=== PATIENT | male | born 1935 | race Caucasian/White ===

== ENCOUNTER 2020-05-06 17:34 | Inpatient (IN) | payer OTHER, MEDICARE ==
[~2020-05-06] VITALS: Ht 180.3 cm; Wt 77.1 kg
[~2020-05-06 17:34] MED LIST: ASPI325 PO; ENOX40I SC; LORA.5 PO; Multivitamin1 EAC1 PO; OXYC5 PO; coq-10 PO
[2020-05-06 18:06] LABS: BASOPHILS ABSOLUTE AUTO 0.03 K/mm3 (0.00-0.23); BASOPHILS PERCENT AUTO 0 % (0-2); EOSINOPHILS PERCENT AUTO 0 % (0-6); Hematocrit 49.2 % (37.0-53.0); Hemoglobin 16.9 g/dL (13.5-17.5); IMMATURE GRAN ABSOLUTE AUTO 0.03 K/mm3 (0.00-0.10); IMMATURE GRAN PERCENT AUTO 0 % (0-1); LYMPHOCYTES ABSOLUTE AUTO 0.92 K/mm3 (0.84-5.20); LYMPHOCYTES PERCENT AUTO 13 % (21-46); MONOCYTES ABSOLUTE AUTO 0.44 K/mm3 (0.16-1.47); MONOCYTES PERCENT AUTO 6 % (4-13); Mean Corpuscular HGB 33.6 pg (26.0-34.0); Mean Corpuscular HGB Conc 34.3 g/dL (31.5-36.5); Mean Corpuscular Volume 98 fL (80-100); Mean Platelet Volume 9.1 fL (9.1-12.4); NEUTROPHILS ABSOLUTE AUTO 5.89 K/mm3 (1.96-9.15); NEUTROPHILS PERCENT AUTO 81 % (41-73); Platelet Count 143 K/mm3 (150-400); RDW Coefficient Variation 12.4 % (11.7-14.2); RDW Standard Deviation 44.9 fL (35.1-46.3); Red Blood Cell Count 5.03 M/mm3 (4.30-5.90); White Blood Cell Count 7.31 K/mm3 (4.00-11.30)
[2020-05-06 18:21] LABS: International Normalized Ratio 1.02; Prothrombin Time Results 10.9 Sec (9.7-11.5)
[2020-05-06 18:30] LABS: Alanine Aminotransfer (ALT/SGP 24 U/L (12-78); Albumin/Globulin Ratio 1.1 (0.8-1.8); Alk Phos 82 U/L (50-136); Anion Gap 9 mmol/L (6-16); Aspartate Aminotrans (AST/SGOT 33 U/L (12-37); Bilirubin, Total 2.6 mg/dL (0.1-1.0); Blood Urea Nitrogen 16 mg/dL (8-24); Bun/Creatinine Ratio 18.9 (12.0-20.0); CO2, Blood 21 mmol/L (21-32); Calcium, Blood 9.2 mg/dL (8.5-10.1); Chloride, Blood 104 mmol/L (98-108); Creatinine, Blood 0.85 mg/dL (0.60-1.20); Globulin, Blood 3.6 g/dL (2.2-4.0); Glomerular Filtration Rate >60 (60-); Glucose, Blood 116 mg/dL (70-99); Potassium, Blood 4.5 mmol/L (3.5-5.5); Sodium, Blood 134 mmol/L (136-145); Total Protein, Blood 7.6 g/dL (6.4-8.2)
[2020-05-06 18:39] LABS: Appearance, Urine Hazy (Clear); Bilirubin, Urine Neg (Neg); Blood, Urine 5+ (Neg); Color, Urine Yellow (P-Yellow); Glucose Qualitative, Urine Neg (Neg); Ketones, Urine 4+ (Neg); Leukocyte Esterase, Urine 1+ (Neg); Nitrite, Urine Neg (Neg); Protein, Urine 3+ (Neg); Source, Urine Catheter; Urobilinogen, Urine NORM (Normal)
[2020-05-06 18:55] LABS: Red Blood Cells, Urine 25-50 /hpf (0-2)
[2020-05-06 18:56] LABS: Bacteria Few /hpf; Squamous Epithelial Cells Few /hpf (Few)
[2020-05-06 18:57] LABS: Renal Epithelial Few /hpf (0-Rare)
[2020-05-06] MEDS ORDERED: HYDHCL25 PO (19:55)
[2020-05-06] MEDS ORDERED: ESCI10 PO (19:55)
--- NOTE | 2020-05-07 04:19 | NUR ---
SHIFT SUMMARY RECIEVED REPORT FROM GEOVANNY VICTOR, ED @ 2127. ARRIVED TO MEDICAL FLOOR VIA STRETCHER @ 2142; ASSISTANCE REQUIRED WITH TRANSFER TO BED FROM [facility]. ALERT. FOLLOWING SOME COMMANDS. VERY [place] OWINGEH. FORGETFUL. IMPULSIVE. PULLING ON COLINDRES CATHETER; CAUSING SOME TRAUMA TO THE AREA. ATTEMPTING TO EXIT THE BED A FEW TIMES. DOES NOT UTILIZE CALL SYSTEM. ALL ADMISSION INFORMATION RETREIVED FROM DAUGHTER AND [facility] RECOR[facility]. HOSPITAL LIAISON STRENGTH TO L SIDE WEAK. L LEG ABLE TO RAISE. PUPILS EQUAL ROUND REACTIVE. VSS/AFEBRILE. NO ACUTE CHANGES NOTED. BED REMAINS IN LOWEST POSITION; ALARM ON. CALL LIGHT WITHIN REACH. CONTINUE WITH CURRENT PLAN OF CARE. REPORT TO ONCIMANI RN.
[2020-05-07 04:38] LABS: BASOPHILS ABSOLUTE AUTO 0.03 K/mm3 (0.00-0.23); BASOPHILS PERCENT AUTO 0 % (0-2); EOSINOPHILS PERCENT AUTO 0 % (0-6); Hematocrit 47.9 % (37.0-53.0); Hemoglobin 16.5 g/dL (13.5-17.5); IMMATURE GRAN ABSOLUTE AUTO 0.04 K/mm3 (0.00-0.10); IMMATURE GRAN PERCENT AUTO 0 % (0-1); LYMPHOCYTES PERCENT AUTO 14 % (21-46); MONOCYTES ABSOLUTE AUTO 0.78 K/mm3 (0.16-1.47); MONOCYTES PERCENT AUTO 8 % (4-13); Mean Corpuscular HGB 33.6 pg (26.0-34.0); Mean Corpuscular HGB Conc 34.4 g/dL (31.5-36.5); Mean Corpuscular Volume 98 fL (80-100); Mean Platelet Volume 8.6 fL (9.1-12.4); NEUTROPHILS ABSOLUTE AUTO 7.48 K/mm3 (1.96-9.15); NEUTROPHILS PERCENT AUTO 77 % (41-73); Platelet Count 134 K/mm3 (150-400); RDW Coefficient Variation 12.5 % (11.7-14.2); RDW Standard Deviation 45.1 fL (35.1-46.3); Red Blood Cell Count 4.91 M/mm3 (4.30-5.90); White Blood Cell Count 9.73 K/mm3 (4.00-11.30)
[2020-05-07 04:51] LABS: Alanine Aminotransfer (ALT/SGP 20 U/L (12-78); Albumin, Blood 3.7 g/dL (3.4-5.0); Albumin/Globulin Ratio 1.1 (0.8-1.8); Alk Phos 73 U/L (50-136); Anion Gap 10 mmol/L (6-16); Aspartate Aminotrans (AST/SGOT 29 U/L (12-37); Bilirubin, Total 2.9 mg/dL (0.1-1.0); Blood Urea Nitrogen 16 mg/dL (8-24); Bun/Creatinine Ratio 19.7 (12.0-20.0); CO2, Blood 22 mmol/L (21-32); Calcium, Blood 8.9 mg/dL (8.5-10.1); Chloride, Blood 105 mmol/L (98-108); Creatinine, Blood 0.81 mg/dL (0.60-1.20); Globulin, Blood 3.5 g/dL (2.2-4.0); Glomerular Filtration Rate >60 (60-); Glucose, Blood 114 mg/dL (70-99); Potassium, Blood 3.7 mmol/L (3.5-5.5); Sodium, Blood 137 mmol/L (136-145); Total Protein, Blood 7.2 g/dL (6.4-8.2)
--- NOTE | 2020-05-07 17:32 | NUR ---
PATIENT RECIEVED IONTO ROOM 346. DAUGHTER JOSE ALEJANDRO HERE WITH PATIENT AT BEDSIDE.
--- NOTE | 2020-05-07 17:57 | NUR ---
PT HAS CONTINUED TO BE CONFUSED AND IMPULSIVE AOX1. PT IS VERY LIMITED ON WHAT HE CAN SAY AND IT DOESN'T MAKE MUCH SENSE AND IS VERY GARBLED. PT HAS TRIED TO GET OUT OF BED THROUGHOUT THE DAY AND HAS NEEDED A LOT OF SUPERVISION AND BED ALARM ON AT ALL TIMES. DECISION WAS MADE TO MOVE PT TO ROOM 346 TO HAVE MORE EYES ON HIM FOR HIS SAFETY. REPORT WAS GIVEN TO RECIEVING KAYLEIGH LAWRENCE. PT HAS BEEN AFEBRILE ALL DAY. NO DISTRESS HAS BEEN NOTED.
--- NOTE | 2020-05-07 22:19 | NUR ---
IMPULSIVE/FORGETFUL FORGETFUL OF SITUATION, KEEPS PUTTING LEGS OVER BED RAILS & TRYING TO GET OOB W/O ASSISTANCE. WHEN ASKED WHAT HE IS DOING PT STATES "GOING FOR A WALK" OR "GETTING A DRINK OF WATER". PT VERY WEAK ONLY HAS MINIMAL GROSS MOVEMENT c L SIDE EXTREMITIES. IS PLEASENT & COOPERATIVE, JUST HIGH FALL RISK & CONFUSED. NORMALLY TAKES ATARAX PO FOR ANXIETY, HOWEVER IS NPO FO SPEECH EVAL TOMORROW. INFORMED ROBERT W & SHE ORDERED OT DOSE 25MG BENEDRYL IV FOR SLEEP. GAVE MED & WILL MONITOR.
--- NOTE | 2020-05-08 04:45 | NUR ---
SHIFT SUMMARY AOXSELF, STATES NAME. HAS SLURRED, GARBLED SPEECH WHICH IS HARD TO UNDERSTAND. [place]. CAN FOLLOW SOME SIMPLE DIRECTIONS, STUCK OUT TONGUE & MOVED BILAT FEET AFTER ASKING A FEW TIMES. IS FORGETFUL & IMPULSIVE, HAS TRIED TO GET OOB W/O HELP, READ PREVIOUS NOTE. STATES HE WANTS TO GO FOR A WALK, NEEDS TO PEE, OR WANTS TO GET A DRINK OF WATER. FORGETS HIS CURRENT SITUATION & WHERE HE'S AT, NEEDS REORIENTING & REMINDING. PLEASENT & COOPERATIVE. HAD 102 TEMP ON DAY SHIFT, PT WAS GIVEN TYLENOL SUPPOSITORY & LAST TEMP TAKEN WAS 99.0. DENIES PAIN, SHAKES HEAD NO WHEN ASKED, STATES "I ONLY HAVE PAIN WHEN I COUGH SOMETIMES." HAS OCCASIONAL CONGESTED MOIST COUGH, USING SUCTION I WAS ABLE TO GET SMALL AMOUNT THICK YELLOW/GREEN SPUTUM. LUNGS SOUND COARSE. SPO2 >90% ON RA. DENIES N/V, STATES "I HAVEN'T EATEN IN AWHILE." CURRENTLY NPO FOR ASPIRATION RISK, HAVING SPEECH EVAL TODAY. COLINDRES PATENT & DRAINING CLOUDY RED/ORANGE URINE c SM CLOTS, PER REPORT PT HAD BEEN PULLING ON COLINDRES PREVIOUS SHIFT & MAY HAVE CAUSED TRAUMA. L HAND BRIQUETTE MAKER WEAKER THEN R HAND, ABLE TO MOVE FINGERS ON L HAND SLIGHTLY & HAS GROSS MOVEMENT c LLE. CALL LIGHT IN REACH, BED ALARM IN PLACE & PT ON CAMERA FOR SAFETY.
--- NOTE | 2020-05-08 16:14 | NUR ---
SHIFT SUMMARY PT HAD AN IMPROVEMENT IN LOC THIS SHIFT. THIS AM THE PATIENT WAS A/O X1 WITH VERY GARBLED SPEECH AND WAS NOT FOLLOWING COMMANDS. THE DAUGHTER CAME IN THIS AFTERNOON AND DURING THE VISIT THE PT BECAME MORE ORIENTED AND HIS SPEECH IMPROVED A BIT. HE WAS ABLE TO TELL THIS RN HIS BIRTHDAY, WHERE HE WAS BORN, AND DESCRIBED ACTIVITIES HE DID AT HOME. PT STILL NPO PER SPEECH THERAPY. TPN STARTED. PALLIATIVE CARE MET WITH PT AND SHELLY. PT RUNNING A FEVER THIS AFTERNOON AND MEDICATED WITH TYLENOL PER EMR.
--- NOTE | 2020-05-08 17:39 | NUR ---
Met with pt and daughter Marisa today for a lengthy visit. This RN saw pt earlier today for a brief interview, but he was unable to speak any intelligible words, and he fell asleep while this RN was speaking to him. Returned to visit with pt's daughter regarding pt's status, and during the visit, the pt began to verbally respond appropriately to most questions, and was able to tell me his date of , and where he was born. I verified the information and it was correct. I then asked him to touch my hand, raising it above him. He was able to follow this command with his right hand, and he attempted with his left, but only able to life left arm about prison up. He then was able to squeeze my fingers, right bone glue maker stronger than the left, but he again was able to follow commands. He told me about his son and his son's dog, including listing all the things he feeds the dogs, including "tomatoes and cucumbers". I was able to understand him very well. His RN for the shift confirmed. Pt's daughter states her shock as well. Plan: Follow up with ST for re-eval tomorrow if she is able.
--- NOTE | 2020-05-08 19:06 | NUR ---
PATIENT AGITATION PT BECAME MORE AGITATED AND CONFUSED. TRIES CONTINUOUSLY TO GET OUT OF BED AND TO PULL OUT HIS COLINDRES CATHETER. CHRIS VEST RESTRAINTS ORDERED AND PLACED ON PATIENT. PT CURRENTLY RESTING COMFORTABLY IN BED WITH CALL LIGHT IN REACH.
--- NOTE | 2020-05-08 22:49 | NUR ---
IMPULSIVE/RESTLESS PT SWINGING LEGS OFF SIDE OF BED, STATES HE'S TRING TO GET UP BECAUSE HE HAS LOTS OF STUFF TO DO. CONFUSED. IMPULSIVE. RESTLESS. TRIED REORIENTING MULTIPLE TIMES TO SITUATION & TELLING PT HE'S IN HOSPITAL, PT STATES HE'S AT HOME. UNABLE TO REDIRECT OR REORIENT TONIGHT & PT CONSTANTLY TRYING TO GET OOB EVEN c CHRIS VEST IN PLACE. INFORMED ROBERT W & SHE ORDERED 50MG IV BENADRYL. GAVE MED & I WILL MONITOR PT.
--- NOTE | 2020-05-09 05:11 | NUR ---
SHIFT SUMMARY AOXSELF, ABLE TO STATE NAME & . FOLLOWS SIMPLE DIRECTIONS. L SEALER AIRCRAFT WEAKER THEN R HAND SEALER AIRCRAFT. LLE GROSS MOVEMENT. GARBLED, SLURRED SPEECH c PERIODS OF CLEAR SPEECH, VERY TALKATIVE TONIGHT. FOUND IN RM TALKING TO SELF FREQUENTLY. INUPIAT. FORGETFUL & IMPULSIVE, FORGETS HE IS IN HOSPITAL & TRYS TO GET OOB TO "DRIVE THE CAR IN THE [place]" OR "GET THINGS DONE". DIFFICULT TO REORIENT @TIMES, READ PREVIOUS NOTE. NO S/S PAIN, N/V OR DYSPNEA. HAS COARSE BREATH SOUNDS c MOIST NONPRODUCTIVE COUGH, SUCTION USED, SPO2 >90% ON RA. VSS. COLINDRES PATENT & DRAINING RED/ORANGE URINE. RECIEVING CLINIMIX @90/HR. Q6 CBG HAVE BEEN WNL. BED ALARM, CHRIS VEST & CAMERA IN PLACE FOR SAFETY. WILL MONITOR.
[2020-05-09 05:12] LABS: BASOPHILS ABSOLUTE AUTO 0.04 K/mm3 (0.00-0.23); BASOPHILS PERCENT AUTO 1 % (0-2); EOSINOPHILS ABSOLUTE AUTO 0.01 K/mm3 (0.00-0.68); EOSINOPHILS PERCENT AUTO 0 % (0-6); Hematocrit 42.5 % (37.0-53.0); IMMATURE GRAN ABSOLUTE AUTO 0.02 K/mm3 (0.00-0.10); IMMATURE GRAN PERCENT AUTO 0 % (0-1); LYMPHOCYTES ABSOLUTE AUTO 1.33 K/mm3 (0.84-5.20); LYMPHOCYTES PERCENT AUTO 20 % (21-46); MONOCYTES ABSOLUTE AUTO 0.57 K/mm3 (0.16-1.47); MONOCYTES PERCENT AUTO 9 % (4-13); Mean Corpuscular HGB 33.6 pg (26.0-34.0); Mean Corpuscular HGB Conc 35.3 g/dL (31.5-36.5); Mean Corpuscular Volume 95 fL (80-100); Mean Platelet Volume 8.9 fL (9.1-12.4); NEUTROPHILS PERCENT AUTO 71 % (41-73); Platelet Count 117 K/mm3 (150-400); RDW Coefficient Variation 11.9 % (11.7-14.2); RDW Standard Deviation 42.2 fL (35.1-46.3); Red Blood Cell Count 4.46 M/mm3 (4.30-5.90); White Blood Cell Count 6.67 K/mm3 (4.00-11.30)
[2020-05-09 05:28] LABS: Albumin, Blood 3.1 g/dL (3.4-5.0); Anion Gap 9 mmol/L (6-16); Blood Urea Nitrogen 23 mg/dL (8-24); Bun/Creatinine Ratio 33.9 (12.0-20.0); CO2, Blood 23 mmol/L (21-32); Calcium, Blood 8.1 mg/dL (8.5-10.1); Chloride, Blood 104 mmol/L (98-108); Creatinine, Blood 0.68 mg/dL (0.60-1.20); Glomerular Filtration Rate >60 (60-); Glucose, Blood 119 mg/dL (70-99); Magnesium, Blood 2.2 mg/dL (1.6-2.4); Phosphorus, Blood 3.4 mg/dL (2.5-4.9); Potassium, Blood 3.5 mmol/L (3.5-5.5); Sodium, Blood 136 mmol/L (136-145)
--- NOTE | 2020-05-09 12:38 | NUR ---
Met with ST this morning at patient's room afer she performed another swallow eval on this gentleman today. He is still speaking more clearly, and is wearing his dentures today, but remains unable to follow commands to swallow food, and held applesauce in his mouth; did not appear to know what to do with it. At this time, pt is exhibiting s/s of anxiety. He is curently sitting up in a reclining chair with a deni in place, and attempting to pull himself forward onto the floor. He is repeating, "I need to get home" and seems to fixate on this. The charge nurse, floor nurse, and television cable installer for the patient are all attempting to redirect pt and keep him from hurting himself, as he doesn't appear to remember he cannot walk. Placed call to pt's daughter Marisa who is available to come now, and ST in agreement that she may be therapeutic for the patient. Also requested Dr. Harmon order prn lorazepam as pt used this for bedtime for several years, and it was effective at that time, per daughter.
--- NOTE | 2020-05-09 14:43 | NUR ---
PT/OT ORDERS RECEIVED V.O. FROM DR. MARR FOR PT/OT EVAL. ORDER UPDATED.
--- NOTE | 2020-05-09 14:43 | NUR ---
DC NS @ [address] MARR TO D/C SALINE. CLINIMIX INFUSING @ 90 MLS/HR
--- NOTE | 2020-05-09 17:26 | NUR ---
Shift Summary AO to self. Patient was impulsive, agitated, difficult to redirect this morning. Climbing out of bed even with vest restraints on. Staff decided to place patient in chair out in the hallway, but patient was adamant about leaving and saying "take me to the car." Speech is slurred and garbled, daughter states speech is at baseline. Some words are clear and some incomprehensible. [place], hearing aids are on. Clinimix infusing at 90 mLs/hr. Blood glucoses have been stable. 2 moderate assist with gait belt. Patient has been calmer this afternoon. Restraints d/c'd. Marisa (daughter) has been at the bedside and states patient does not wish to receive artificial nutrition through feeding tubes. She claims documents expressing such has been [facility] by the [facility], but there is no documents yet. Will fax request to DC for these documents. PT/OT was not able to eval d/t patient sleeping. ROYAL.
--- NOTE | 2020-05-09 18:05 | NUR ---
FALL PATIENT HAD A FALL BRIEFLY AFTER RESTRAINTS WERE REMOVED. NO APPARENT INJURY. NOTIFIED DR. MARR AND L/M ON JOSE ALEJANDRO'S (DAUGHTER) PHONE. PATIENT BACK IN BED WITH RESTRAINTS ON. CHARGE NURSE NUHA AND NURSING SERVICE ORDER CLERK NOTIFIED.
--- NOTE | 2020-05-10 04:12 | NUR ---
SHIFT SUMMARY ASSUMED CARE OF PT AT 190. PT IS A/O TO NONE. HEART SONDS RGULAR, LUNG SOUNDS COARSE. RT WAS CONSULTED WITH CARE BECASE PT HAD A DEEP GARGLE IN HIS THROAT. HOSPITALIST ORDERED NT SUCTION PER RT. RT WAS ABLE TO SUCTION A SMALL AMOUNT OF THICK WHITE MUCUS, PT GARGLE STOPPPED FOR A COUPLE HOURS AND THEN STARTED AGAIN. COLINDRES DRAINING SURENDRA URINE. PT ATTEMPTED TO GET OUT OF BED MULTIPLE TIMES DURING THE NIGHT. HOSPITALIST NOTIFIED AND ORDERED ZYPREXA. PT STILL ATTEMPTED TO GET OUT OF BED BUT NOT OFTEN AFTER TREATMENT. CALL LIGHT IN REACH, BED IN LOWEST POSITION.
[2020-05-10 05:18] LABS: Magnesium, Blood 2.3 mg/dL (1.6-2.4)
[2020-05-10 05:19] LABS: Phosphorus, Blood 4.3 mg/dL (2.5-4.9)
--- NOTE | 2020-05-10 11:27 | NUR ---
BLOOD GLUCOSE CHECKS PATIENT'S BLOOD SUGARS HAVE BEEN STABLE @ 120 AND UNDER. RECEIVED V.O. FROM DR. TEJINDER CASTLE TO D/C Q6 BLOOD SUGAR CHECKS.
--- NOTE | 2020-05-10 11:30 | NUR ---
DAILY WEIGHT AND COLINDRES RECEIVED V.O. FROM DR. MARR TO D/C DAILY WEIGHT AND COLINDRES CATHETER. ORDERS UPDATED.
[2020-05-10 11:43] LABS: Influenza A, PCR NEGATIVE (NEGATIVE); Influenza B, PCR NEGATIVE (NEGATIVE); Resp Syncytial Virus, PCR NEGATIVE (NEGATIVE); SARS-Cov-2 (COVID-19) PCR, MMC NEGATIVE (NEGATIVE)
--- NOTE | 2020-05-10 17:58 | NUR ---
RESTRAINTS PATIENT REMAINS CONFUSED AND SWINGING LEGS OUT OF BED. INCOHERENT AND UNABLE TO REDIRECT. ALSO SUSTAINED A FALL YESTERDAY. RECEIVED T.O. FROM DR. MARR TO RENEW VEST RESTRAINTS. ORDER PLACED.
--- NOTE | 2020-05-10 18:27 | NUR ---
Review of plan of care with home health care physician. Will follow up with daughter tomorrow for supportive visit and assesment of her goals for her father.
--- NOTE | 2020-05-10 19:48 | NUR ---
Shift Summary A/O to self and family. Vest restraints remain in place. The copy of advanced directive [facility] the [facility] in chart does not state any specifics of patient's wishes. RT called several times for deep suctioning. Patient having lots of secretions requiring this RN to suction at bedside as well. Marisa was in to see patient and very tearful RE patient's decline and inability to swallow. Marisa states considering taking patient home before the weekend on Hospice. Decision to be made after family discussion fela. Betty Palliative RN aware. Clinimix @ 90 with lipids infusing. Patient was not appropriate for PT/OT eval today. Report given to oncoming RN.
[2020-05-11 05:21] LABS: Magnesium, Blood 2.3 mg/dL (1.6-2.4); Phosphorus, Blood 4.4 mg/dL (2.5-4.9)
--- NOTE | 2020-05-11 06:15 | NUR ---
SHIFT SUMMARY ALERT TO SELF. COOPERATIVE WITH CARE EXCEPT FOR WHEN IT COMES TO SUCTIONING. DOES NOT LIKE THAT AT ALL. NO C/O PAIN/DISCOMFORT OF S/SX. APPEARED TO REST SOME THE NIGHT. CONTINUES TO HAVE WET PRODUCTIVE COUGH AT TIMES, BUT REFUSES TO SPIT OUT PHLEGM. BS COARSE. SPO2 >90% ON RA, RESPIRATIONS EVEN WITH EQUAL RISE/FALL. NEW IV PLACED AND CONT TO INFUSE CLINIMIX AND LIPIDS. REPOSITIONED TOLERATED. BED REMAINS IN LOWEST POSITION; ALARM ON. CALL LIGHT WITHIN REACH, DOES NOT UTILIZE. CONTINUE WITH CURRENT PLAN OF CARE. REPORT TO ONCOMING RN.
--- NOTE | 2020-05-11 11:43 | NUR ---
Attempted to see pt today. According to OPERATIONS LEADER, pt has been sleeping for about an hour this morning. He is sitting in the upright position, slightly slumped. Per OPERATIONS LEADER, prior to this he was restless, and attempting to climb out of bed and not redirecting well. However, he is sleeping very well at this time, and barely seems to notice when we repositioneded him in the bed and lowered HOB. He appears more comfortable. No symptom managemen issues at this time. Pt remains NPO, but receiving fluids and nutrition via IV for now. No final decision has been made regarding placement at this time.
[2020-05-11 18:14] LABS: Source, Urine Clean Catch
--- NOTE | 2020-05-11 18:38 | NUR ---
SHIFT SUMMARY TYRA WAS OUT OF RESTRAINTS THIS SHIFT. ORIENTED TO SELF, FAMILY, AND SOMEWHAT TO SITUATION. STATES HE HAS PAINFUL URINATION, UA SENT OFF PER DR MARR. URINATED IN URINAL WITH DAUGHTER. VERY [place]. WORKED WITH PT AND OT, GOT UP TO CHAIR WITH AO2 AND GAIT BELT. CLINIMIX AND LIPIDS RUNNING. INCONT/CONTINENT. ADULT CROSSING GUARD CAME AND SAW HIM, NOT SAFE FOR PO INTAKE. RT NT SUCTIONED HIM TWICE THIS SHIFT. CONTINUES TO BE OUT OF RESTRAINTS, BUT SETS OFF BED ALARM FREQUENTLY WHEN IN CHAIR. IN BED, HE TENDS TO FALL ASLEEP AND REST MORE COMFORTABLY. VERY IMPULSIVE. CALL LIGHT IN REACH, FREQUENT CHECKS, WCTM
[2020-05-11 18:54] LABS: Appearance, Urine Clear (Clear); Bilirubin, Urine Neg (Neg); Blood, Urine 5+ (Neg); Color, Urine Yellow (P-Yellow); Glucose Qualitative, Urine Neg (Neg); Ketones, Urine Neg (Neg); Leukocyte Esterase, Urine 2+ (Neg); Nitrite, Urine Neg (Neg); Protein, Urine 2+ (Neg); Urobilinogen, Urine NORM (Normal)
[2020-05-11 19:15] LABS: Bacteria Mod /hpf; Squamous Epithelial Cells Mod /hpf (Few)
[2020-05-11 19:16] LABS: Amorphous Light (0-Heavy); Mucus Heavy (0-Heavy)
[2020-05-12 04:59] LABS: Hematocrit 45.4 % (37.0-53.0); Hemoglobin 15.6 g/dL (13.5-17.5); Mean Corpuscular HGB 33.5 pg (26.0-34.0); Mean Corpuscular HGB Conc 34.4 g/dL (31.5-36.5); Mean Corpuscular Volume 98 fL (80-100); Mean Platelet Volume 9.6 fL (9.1-12.4); Platelet Count 130 K/mm3 (150-400); RDW Standard Deviation 43.5 fL (35.1-46.3); Red Blood Cell Count 4.65 M/mm3 (4.30-5.90)
[2020-05-12 05:20] LABS: Albumin, Blood 2.9 g/dL (3.4-5.0); Anion Gap 7 mmol/L (6-16); Blood Urea Nitrogen 27 mg/dL (8-24); Bun/Creatinine Ratio 38.5 (12.0-20.0); CO2, Blood 26 mmol/L (21-32); Calcium, Blood 8.5 mg/dL (8.5-10.1); Chloride, Blood 101 mmol/L (98-108); Glomerular Filtration Rate >60 (60-); Glucose, Blood 111 mg/dL (70-99); Phosphorus, Blood 4.4 mg/dL (2.5-4.9); Potassium, Blood 4.4 mmol/L (3.5-5.5); Sodium, Blood 134 mmol/L (136-145)
--- NOTE | 2020-05-12 05:48 | NUR ---
SHIFT SUMMARY PT IS A&O TO SELF, EXTREMELY RED CLIFF, CONFUSED & ATTEMPTED TO GET OUT OF BED T/O THE NIGHT (DID NOT SLEEP), C/O HAVING TO VOID EVERY 5 MINUTES- ASSISTED W/URINAL & INCONT T/O THE NIGHT (CURRENT BLADDER SCAN= 160MLS), PT STILL ATTEMPTING TO GET OUT OF BED STATING "I NEED TO PEE", BED ALARM ACTIVE, SWITCHBOARD INSPECTOR WATCHING FROM OUTSIDE THE ROOM T/O THE NIGHT, NO OTHER COMPLAINTS, VSS, WILL CONT TO MONITOR UNTIL REPORT GIVEN TO DAY RN.
--- NOTE | 2020-05-12 18:38 | NUR ---
SHIFT SUMMARY TYRA'S DAUGHTER VISITED TODAY. PT UP IN CHAIR FOR HALF HOUR, WALKED TO BR WITH AO2 AND GAIT BELT DUE TO IMPULSIVITY. VERY [place], BUT READS LIPS WELL. ORIENTED TO SELF AND ABLE TO FOLLOW DIRECTIONS BUT VERY DISTRACABLE AND IMPULSIVE. FAILED SWALLOW EVAL AGAIN THIS SHIFT. INCONT/CONTINENT. STILL ENDORSES DYSURIA. STRICT NPO. CLINIMIX AND LIPIDS RUNNING. RESTLESS IN BED, OCCASIONALLY THROWS LEGS OVER SIDE BUT DIDN'T ATTEMPT TO GET OOB THIS SHIFT. ON CONTINUOUS VIDEO MONITORING. NO SUCTIONING REQUIRED THIS SHIFT. FREQUENT CHECKS, CALL LIGHT IN REACH, [facility]
--- NOTE | 2020-05-13 09:24 | NUR ---
THE NURSE AND I TRIED GETTING PT OUT OF BED AND INTO CHAIR. PT REFUSED TO STAND AND TRIED LAYING BACK DOWN. WE PUT HIM BACK TO BED BUT HE STILL TRIED TO CLIMB OUT OF BED.
--- NOTE | 2020-05-13 14:56 | NUR ---
PT MOVED TO CHAIR AND IS NOT TRYING TO GET UP.
--- NOTE | 2020-05-13 17:48 | NUR ---
FAMILY PRESENT, PO FLUIDS OFFERED, PT REPOSITIONED.
--- NOTE | 2020-05-13 19:17 | NUR ---
SHIFT SUMMARY PT PLACED ON COMFORT CARE THIS SHIFT. PT FAMILY CAME TO VISIT. DIET CHANGED TO PUREE. CHRIS VEST NEEDED DUE TO PT TRYING TO TRANSFER SELF. NO PRN MEDICATION GIVEN DURING SHIFT. PT CURENTLY IN BED, SHIFT REPORT GIVEN TO NIGHT NURSE.
--- NOTE | 2020-05-13 22:44 | NUR ---
AGITATION PT COMBATIVE, KICKING HIS LEGS AND SWINGING HIS LEGS. ATTEMPTED TO GIVE ATIVAN WITH PUDDING BUT PT CONTINUES TO SWING AND REFUSES TO TAKE. DR. KHALIL CALLED AND NOTIFIED OF PT AGITATION. RECEIVED ORDER FOR IV ATIVAN.
--- NOTE | 2020-05-14 05:12 | NUR ---
SHIFT SUMMARY PT HAS BEEN RESTLESS AND AGITATED OFF AND ON THIS SHIFT. PT STARTED SHIFT, PLESANTLY CONFUSED STILL ATTEPTING MAGALIE CLIMB OUT OF BED BUT WAS MOSTLY COOPERATIVE AND REDIRECTABLE. HOWEVER, THE NIGHT PROGRESSED PT BECAME MORE AGIATED AND COMBATIVE WITH STAFF. PT IS DIFFICULT TO DIRECT AND HAS A HARD TIME FOLLOWING DIRECTIONS. SPEECH IS GARBALED AND NONSENSICAL. PT SWINGS AT AND ATTEMPTS TO KICK STAFF WHEN ATTEMPING TO REPOSITION, OR WHEN CHANGING ATTENDS. PT INCONTINENT AND AT TIMES REMOVES ATTENDS SOILING THE BED. LINEN CHANGES HAVE BEEN REQURIED THIS SHIFT. CHRIS VEST REMAINS IN PLACE PT CONTINUES TO ACTIVELY CLIMB OUT OF BED. PT IS VERY WEAK AND UNSTEADY ON HIS FEET, AND REMAINS A HUSSEIN FALL RISK. PT DENIES PAIN. MEDICATED FOR ANXIETY THIS SHIFT. PT DOES HAE EXCESS SECREATIONS, YANKER SUCTION AT BEDSIDE AND USED PRN. COMFORT ASSESSED T/O SHIFT. BED IN LOWEST POSITION, CALL LIGHT WITHIN REACH, BED ALARM IN PLACE.
--- NOTE | 2020-05-14 10:07 | NUR ---
PT SLEEPING. AROUSES TO SOME STIMULATION BUT FALLS BACK ASLEEP QUICLY. DOES NOT FOLLOW INSTRUCTIONS AND IS NOT ORIENTED. ABSENT OF ANY PAIN SIGNALS. APNEIC DURING SLEEP AT TIMES. SCU CONFERENCE COORDINATOR CALLED AND NOTIFED THAT PATIENT RESTRAINTS HAVE BEEN DC'D. BED IN LOW POSITION, BED ALARM ON, CALL LIGHT WITHIN REACH
--- NOTE | 2020-05-14 12:50 | NUR ---
PAL CARE - Comfort care visit - Pt sound asleep in room. He appears comfortable. He did not wake when I entered room or to voice and I did not disturb him. Case conferenced with pt's RN re: medications for current and anticipated secretions due to aspiration and inability to swallow. No family visiting at present. Plan daily comfort care visits for support and s/s assessments.
--- NOTE | 2020-05-14 16:52 | NUR ---
SHIFT SUMMARY PT AXOX0 AROUSING TO TACTILE STIMULATION, BUT FALLS BACK TO SLEEP QUICKLY. ON COMFORT CARE. PT APPEARS ABSENT OF PAIN AND AGGITATION. REPOSITIONED AND ORAL CARE PER ORDERS. RESTRAINTS DC'D THIS MORNING. PT NOT ATTEMPTING OOB THIS SHIFT. BED IN LOW POSITION, CALL LIGHT WITHIN REACH. PT'S DAUGHTERS IN ROOM AT THIS TIME. ONE OF WHOM IS AN RN WHO EXPRESSED CONCERN ABOUT THE DOSAGE OF ATIVAN GIVEN LAST NIGHT. THIS NURSE LISTENED TO DAUGHTER VIA ACTIVE LISTENING AND THERAPEUTIC COMMUNICATION. THIS NURSE CALLED DR ARTEAGA TO REDUCE DOSAGE RANGE, SEE ORDERS. DAUGHTER UPDATED, NO PAIN OR AGGITATION MEDICATIONS GIVEN THIS SHIFT. PT APPEARS COMFORTABLE AT THIS TIME.
--- NOTE | 2020-05-14 19:30 | NUR ---
ASSUMPTION OF CARE REPORT TAKEN FROM DAY RN TO ASSUME CARE OF PT. PT DAUGHTER'S AND CHEMICAL MANAGER AT BEDSIDE PERFORMING CARE WHEN THIS RN CAME ON TO SHIFT. AFTER REPORT ALL QUESTIONS AND CONCERNS ADDRESSED WITH FAMILY REGARDING COMFORT CARE, AND COMFORT CARE MEDICATIONS ORDERED FOR ANXIETY/AGITATION. PT AMBULATED TO THE BATHROOM WITH HIS DAUGHTER'S. THEY REQUESTED TO HELP GET HIM TO THE BATHROOM THEMSELVES, I ASSISTED PRN. PT TOLERATED AMBULATION WELL AND HAD A SMALL BM. PT APPEARS IN GOOD SPIRITS WITH FAMILY AT BEDSIDE, AND HE ATE A GOOD PORTION OF HIS DINNER. PT IS MORE AWAKE AND ALERT, COOPERATIVE AND IS FOLLOWING DIRECTIONS. THE FAMILY FEELS BETTER THAT ALL ISSUES HAVE BEEN ADDRESSED REGARING PT MEDICATIONS, AND ARE FULLY INFORMED OF CURRENT PLAN OF CARE. PT'S FAMILY REQUEST SOMETHING TO HELP PT SLEEP TONIGHT AND WOULD LIKE MELATONIN ORDERED. PT DAUGHTER REQUESTS TO BE CALLED PRN FOR ANY BEHAVIOURAL DISTURBANCES WITH PT, AND STATES SHE WILL COME SIT [facility] PT IF NEEDED. NAME AND NUMBER IS ON THE BOARD. PT RESTING COMFORTABLY IN BED AT THIS TIME. BED IN LOWEST POSITION, CALL LIGHT WITHIN REACH. BED ALARM IN PLACE.
--- NOTE | 2020-05-15 05:03 | NUR ---
SHIFT SUMMARY PT IS MUCH MORE LUCID, AND HAS NOT HAD ANY BEHAVIOURAL ISSUES THIS SHIFT. PT HAS SLEPT COMFORTABLY MOST OF THE NIGHT IN BED. WHEN ASKED ABOUT PAIN PT DENIES. MINIMAL SECREATIONS, AND PT HAS NOT NEEDED YANKER SUCTION. PT ABLE TO VOICE SOME NEEDS. PT INDEPENDENTLY SHIFTS AND REPOSITIONS HIMSELF IN BED. PT ASKS TO USE THE URINAL A FEW TIMES THIS SHIFT, BUT WHEN ATTENDS ARE CHECKED PT HAS ALREADY GONE. PT HAS HAD A RESTFUL NIGHT, AND IS PLESANT AND COOPERATIVE WITH STAFF. COMFORT ASSESSED T/O SHIFT. BED IN LOWEST POSITION, CALL LIGHT WITHIN REACH.
--- NOTE | 2020-05-15 19:26 | NUR ---
Spiritual care note: No family present. Mr. Calvin appeared to be peacefully sleeping. Prayer and comfort through touch/presence. I will remain available to pt and family.
--- NOTE | 2020-05-15 19:47 | NUR ---
a and orintated to self and family, gets confused at times but never combatative, call light in reach, bed in low positon, family in to visit, medicated as prescribed, able to transfer to bsc with 2 person assist, no acute changes noted during shift
--- NOTE | 2020-05-16 03:32 | NUR ---
PHYSICIAN COMMUNICATION CONTACTED FENCE BUILDER PHYSICIAN, DR REINOSO, TO NOTIFY HER THAT THE PATIENT IS AGITATED. HE IS CONSTANTLY TRYING TO CRAWL OUT OF BED, EVEN WITH CHRIS ON, AND MANAGED TO SLIDE HIS FEET BETWEEN THE BED RAILS AND TO THE FLOOR. ALSO NOTIFIED DR REINOSO THAT THE PATIENT WAS ADMINISTERED 1 MG ATIVAN PO AT [address] REINOSO SAID TO ADMINISTER 1 MG ATIVAN IV TO HELP WITH AGITATION.
--- NOTE | 2020-05-16 06:34 | NUR ---
SHIFT SUMMARY PATIENT ALERT AND ORIENTED TO SELF ONLY. PATIENT SHOWED NO SIGNS OF BEING IN PAIN. WAS MEDICATED TWICE WITH PRN ATIVAN FOR AGITATION. AFTER ADMINISTRATION OF 1 MG ATIVAN IV AT 0322 PATIENT CONTINUED TO PULL OFF HIS BRIEFS FREQUENTLY AND TRY CRAWLING OUT OF BED. IT HAD MINIMAL EFFECT ON HIM. PANTS PLACED ON PATIENT TO DETER HIM FROM TAKING HIS BRIEFS OFF SO OFTEN. IV PATENT AND FLUSHED. BED IN LOWEST POSITION WITH WHEELS LOCKED AND ALARM ON. CALL LIGHT WITHIN REACH. REPORT GIVEN TO ONCOMING RN.
--- NOTE | 2020-05-16 14:11 | NUR ---
SHIFT SUMMARY PT AWAKE AND ALERT, BUT DOES NOT ANS QUESTIONS APPROPRIATELY OR FOLLOW ANY DIRECTIONS. PT CURRENTLY ON COMFORT CARE. PER REPORT, PT TO BE D/C'D TO HOME ON HOSPICE WHEN SET UP. PT HAS BEEN VERY BUSY AND RESTLESS. CONSTANTLY TRYING TO GET OOB. PT IS CONFUSED AND DISORIENTED. EATING ONLY BITES AT A TIME. PT/OT D/C'D, PT IS UNABLE TO PARTICIPATE OR FOLLOW ANY INSTRUCTIONS. PT IS INCONTINENT OF BOWEL AND BLADDER; ATTENDS CHANGED FREQUENTLY. BED ALARM ON FOR SAFETY. CALL LT IN REACH.
--- NOTE | 2020-05-16 17:39 | NUR ---
Met with pt today; he's been placed on comfort care measures and is continuing to decline as he is drinking and eating scant amounts by choice. Pt appears to be losing interest in food, and will occasionally take bites but not attempt to swallow them. Nursing continues with frequent mouth cleansing. Pt is calm at this visit today. Ray still used occasionally for safety.
--- NOTE | 2020-05-17 04:34 | NUR ---
INDUSTRIAL ENGINEERING PROFESSOR SUMMARY PT HAS SLEPT MOST OF THE NIGHT. COMFORT CARE MEASURES GIVEN. DENIES PAIN. ORAL CARE PROVIDED. PT ABLE TO REPOSITIONING SELF. INCONTINENT TO BOWEL. NO ACUTE CHANGES. CALL LIGHT WITHIN REACH, BED ALARM ON.
--- NOTE | 2020-05-17 09:48 | NUR ---
PATIENT CALM AND COOPERATIVE AT THIS TIME. CHRIS IN PLACE FOR SAFETY. ATTENDS CHANGED AND PATIENT REPOSITIONED.
[2020-05-17] MEDS ORDERED: MORP20L PO (11:08)
[2020-05-17] MEDS ORDERED: ONDA4ODT MM (11:08)
[2020-05-17] MEDS ORDERED: Ativan1 MG PO (11:08)
== END 2020-05-17 11:43 | disposition hospice, home (50) | DRG 64 ==
LOC: ER 17:34 → MEDS 20:20
PROVIDERS: Internal Medicine; Student in an Organized Health Care Education/Training Program; ADMIT Internal Medicine
DX: I63.511 Cerebral infarction due to unspecified occlusion or stenosis of right middle cerebral artery (principal); J69.0 Pneumonitis due to inhalation of food and vomit; G81.94 Hemiplegia, unspecified affecting left nondominant side; Z66 Do not resuscitate; Z51.5 Encounter for palliative care; Z20.822 Contact with and (suspected) exposure to COVID-19; R23.3 Spontaneous ecchymoses; R13.10 Dysphagia, unspecified; R47.01 Aphasia; R47.1 Dysarthria and anarthria; E87.6 Hypokalemia; F32.9 Major depressive disorder, single episode, unspecified; D69.6 Thrombocytopenia, unspecified; R47.81 Slurred speech; R30.9 Painful micturition, unspecified; R40.1 Stupor; H93.299 Other abnormal auditory perceptions, unspecified ear; R41.89 Other symptoms and signs involving cognitive functions and awareness; F03.90 Unspecified dementia, unspecified severity, without behavioral disturbance, psychotic disturbance, mood disturbance, and anxiety; I10 Essential (primary) hypertension; Z87.891 Personal history of nicotine dependence; Z88.2 Allergy status to sulfonamides; Z88.8 Allergy status to other drugs, medicaments and biological substances; Z91.011 Allergy to milk products; Z98.890 Other specified postprocedural states; Z79.899 Other long term (current) drug therapy
CPT/HCPCS: 0241U; 31720; 36415; 51702; 70450; 70496; 70498; 71045; 80053; 80069; 81001; 82947; 83735; 84100; 85025; 85027; 85610; 87086; 92526; 92610; 93005; 93010; 97110; 97116; 97162; 97166; 97530; 97535; 99285-25; A9270; J0696; J1200; J2060; J7030; J7050; Q9967